=== PATIENT | female | born 1945 | race Two or more races ===

== ENCOUNTER → 2018-01-20 | Outpatient (CLI) | payer MEDICARE ==
[~2018-01-20] MED LIST: AMLO5TAB13; METO-158
== END | disposition home or self-care (01) ==
LOC: LAB 11:52
PROVIDERS: ATTEND Obstetrics & Gynecology
DX: N39.0 Urinary tract infection, site not specified (principal)
CPT/HCPCS: 87086

== ENCOUNTER → 2018-02-16 | Outpatient (CLI) | payer MEDICARE, BC ==
[2018-02-16 12:09] LABS: Hemoglobin 10.1 g/dL (12.2-16.2); Red Blood Cells 3.01 10^6/uL (4.0-5.20)
[2018-02-16 12:11] LABS: Mean Corpuscular Hemoglobin 33.5 pg (28.0-32.0); Mean Corpuscular Hgb Conc. 33.7 g/dL (32.0-36.0); Mean Corpuscular Volume 99.5 fL (80.0-100.0); Platelet Count (auto) 55 10^3/uL (140-450); Red Cell Distribution Width 15.7 % (11.8-14.3); White Blood Cell 6.5 10^3/uL (4.4-10.8)
[2018-02-16 12:46] LABS: Band Neutrophils % (manual) 0; Basophils % (manual) 0 (0.0-2.0); Blast Cells 0; Metamyelocytes % 0; Myelocytes % 0; Promyelocytes % 0; Reactive Lymphocytes 0
[2018-02-16 13:04] LABS: BUN/Creatinine Ratio 20.2; Calcium 8.2 mg/dL (8.5-10.1); Potassium 3.6 mmol/L (3.5-5.1)
[2018-02-16 13:12] LABS: Eosinophils % (manual) 1 (0-7); Lymphocytes % (manual) 9 (10.0-50.0); Monocytes % (manual) 42 (0-12)
[2018-02-16 13:16] LABS: Bilirubin, Total 1.1 mg/dL (0.2-1.0); CRP High Sensitivity 4.57 mg/dL (< 0.3); Total Protein 7.3 g/dL (6.4-8.2)
[2018-02-16 15:53] LABS: Urine Bacteria FEW /hpf (None Seen); Urine Blood 2+ /uL (Negative); Urine Hyaline Cast MOD /lpf (0 - 2); Urine Mucus FEW (None Seen); Urine Specific Gravity 1.013 (1.001-1.035); Urine WBC 12 /hpf (0 - 5)
[2018-02-16 16:36] LABS: Free T4 (Free Thyroxine) 1.3 ng/dL (0.89-1.76)
== END | disposition home or self-care (01) ==
LOC: LAB 11:05
DX: I10 Essential (primary) hypertension (principal); D64.9 Anemia, unspecified; E78.5 Hyperlipidemia, unspecified; R73.09 Other abnormal glucose; C73 Malignant neoplasm of thyroid gland
CPT/HCPCS: 36415; 80053; 80061; 81001; 82043; 82607; 83036; 84439; 84443; 85007; 85027; 86141

== ENCOUNTER → 2018-04-05 | Outpatient (CLI) | payer MEDICARE, BC ==
[2018-04-05 11:18] LABS: Hemoglobin 9.5 g/dL (12.2-16.2); Mean Corpuscular Hgb Conc. 34.1 g/dL (32.0-36.0); Platelet Count (auto) 138 10^3/uL (140-450); White Blood Cell 3.6 10^3/uL (4.4-10.8)
[2018-04-05 11:48] LABS: Red Cell Distribution Width 20.3 % (11.8-14.3)
[2018-04-05 11:49] LABS: Blast Cells 0; Myelocytes % 0; Promyelocytes % 0; Reactive Lymphocytes 0
[2018-04-05 13:42] LABS: Band Neutrophils % (manual) 6; Basophils % (manual) 1 (0.0-2.0); Eosinophils % (manual) 2 (0-7); Lymphocytes % (manual) 27 (10.0-50.0); Metamyelocytes % 2; Monocytes % (manual) 16 (0-12)
== END | disposition home or self-care (01) ==
LOC: LAB 10:27
DX: C83.38 Diffuse large B-cell lymphoma, lymph nodes of multiple sites (principal)
CPT/HCPCS: 36415; 85007; 85027

== ENCOUNTER → 2018-05-12 | Outpatient (CLI) | payer MEDICARE, BC ==
[2018-05-12 11:17] LABS: White Blood Cell 3.7 10^3/uL (4.4-10.8)
[2018-05-12 11:19] LABS: Hematocrit 28.1 % (36.0-46.0); Hemoglobin 9.4 g/dL (12.2-16.2); Mean Corpuscular Hemoglobin 34.7 pg (28.0-32.0); Mean Corpuscular Hgb Conc. 33.4 g/dL (32.0-36.0); Mean Corpuscular Volume 103.9 fL (80.0-100.0); Platelet Count (auto) 69 10^3/uL (140-450); Red Cell Distribution Width 15.8 % (11.8-14.3)
[2018-05-12 11:22] LABS: Basophils % (manual) 0 (0.0-2.0); Blast Cells 0; Metamyelocytes % 0; Myelocytes % 0; Promyelocytes % 0; Reactive Lymphocytes 0
[2018-05-12 11:42] LABS: Magnesium 1.8 mg/dL (1.6-2.6); Potassium 3.7 mmol/L (3.5-5.1)
[2018-05-12 11:49] LABS: Albumin 2.9 g/dL (3.4-5.0); BUN/Creatinine Ratio 16.7; Bilirubin, Total 0.7 mg/dL (0.2-1.0); Calcium 7.5 mg/dL (8.5-10.1); Total Protein 6.2 g/dL (6.4-8.2); Uric Acid 7.4 mg/dL (2.6-6.0)
[2018-05-12 12:19] LABS: Band Neutrophils % (manual) 1; Eosinophils % (manual) 8 (0-7); Lymphocytes % (manual) 15 (10.0-50.0); Monocytes % (manual) 13 (0-12)
== END | disposition home or self-care (01) ==
LOC: LAB 10:59
DX: C83.38 Diffuse large B-cell lymphoma, lymph nodes of multiple sites (principal)
CPT/HCPCS: 36415; 80053; 83615; 83735; 84550; 85007; 85027

== ENCOUNTER → 2018-06-02 | Outpatient (CLI) | payer MEDICARE, BC ==
[2018-06-02 13:01] LABS: Hemoglobin 8.9 g/dL (12.2-16.2); Red Blood Cells 2.54 10^6/uL (4.0-5.20); White Blood Cell 5.6 10^3/uL (4.4-10.8)
[2018-06-02 13:05] LABS: Mean Corpuscular Hemoglobin 35.2 pg (28.0-32.0); Mean Corpuscular Hgb Conc. 34.3 g/dL (32.0-36.0); Mean Corpuscular Volume 102.6 fL (80.0-100.0); Platelet Count (auto) 189 10^3/uL (140-450); Red Cell Distribution Width 15.2 % (11.8-14.3)
[2018-06-02 13:22] LABS: Basophils % (manual) 0 (0.0-2.0); Blast Cells 0; Metamyelocytes % 0; Myelocytes % 0; Promyelocytes % 0; Reactive Lymphocytes 0
[2018-06-02 13:30] LABS: Calcium 7.3 mg/dL (8.5-10.1); Potassium 3.6 mmol/L (3.5-5.1); Uric Acid 6.1 mg/dL (2.6-6.0)
[2018-06-02 13:32] LABS: BUN/Creatinine Ratio 26.4; Bilirubin, Total 0.3 mg/dL (0.2-1.0); Total Protein 6.4 g/dL (6.4-8.2)
[2018-06-02 18:42] LABS: Platelet Count (auto) 189 10^3/uL (140-450)
[2018-06-02 18:48] LABS: Band Neutrophils % (manual) 2; Eosinophils % (manual) 1 (0-7); Lymphocytes % (manual) 10 (10.0-50.0); Monocytes % (manual) 9 (0-12)
== END | disposition home or self-care (01) ==
LOC: LAB 12:40
DX: C83.38 Diffuse large B-cell lymphoma, lymph nodes of multiple sites (principal)
CPT/HCPCS: 36415; 80053; 83605; 83615; 84550; 85007; 85025; 85027